=== PATIENT | male | born 1960 | race Caucasian/White ===

== ENCOUNTER 2019-06-23 10:55 | Inpatient (IN) | payer BC ==
[~2019-06-23] VITALS: Ht 193 cm; Wt 119.1 kg
[2019-06-23] VITALS (11 sets, daily range): BP systolic 144–168; BP diastolic 88–108
--- NOTE | 2019-06-23 11:13 | NUR ---
THIS IS A 59 YO M W/ C/O ABD PAIN N/V/D AND BLACK STOOLS SINCE THIS MORNING. REPORTS VOMITINGX5, BMX3. REPORTS COUGHING UP DIME SIZED BLOOD CLOTSX4 WEEKS, NOSEBLEEDS EVERYDAY AND SOB. PT C/O BLOATING AND ABD PAIN IN LWR QUADRANTS 08/03. PT DENIES CP. NO BLOOD THINNERS. PT IS RESTING ON [employer] W/ CALL LIGHT IN REACH. IN ROOM FOR EVAL.
[2019-06-23] MEDS ORDERED: SODIUM CHLORIDE FLUSH 10ML SYR IVF ONE (11:30)
[2019-06-23] MEDS ORDERED: PANTOPRAZOLE 80 MG in SODIUM CHLORIDE 0.9% 50 ML IVPB ONE (11:30)
[2019-06-23] MEDS ORDERED: ONDANSETRON 2MG/ML, 2ML IVPush ONE (11:30)
[2019-06-23] MEDS ORDERED: ONDANSETRON 2MG/ML, 2ML ONE (11:30)
[2019-06-23] MEDS ORDERED: SODIUM CHLORIDE 0.9% 1,000ML IVBOLUS ONE (11:30)
--- NOTE | 2019-06-23 11:59 | NUR ---
PT HAD EPISODE OF COFFEE GROUND EMESIS. ALSO COUGHED UP LARGE RED BLOOD CLOT. REPORTED TO .
[2019-06-23] MEDS ORDERED: PANTOPRAZOLE 80 MG in SODIUM CHLORIDE 0.9% 100 ML IV SCH (12:00)
[2019-06-23 12:07] LABS: ALANINE AMINOTRANSFERASE 68 U/L (12-78); ALBUMIN 4.1 g/dL (3.4-5.0); ANION GAP 12 mmol/L (5-15); CALCIUM 9.2 mg/dL (8.5-10.1); CHLORIDE 105 mmol/L (98-107); CREATININE 0.98 mg/dL (0.7-1.3)
[2019-06-23 12:09] LABS: ALKALINE PHOSPHATASE 141 U/L (45-117); BILIRUBIN,TOTAL 2.6 mg/dL (0.2-1.0); TOTAL PROTEIN 8.2 g/dL (6.4-8.2)
[2019-06-23 12:10] LABS: INTERNATIONAL NORMALIZED RATIO 1.25 (0.93-1.1); PROTHROMBIN TIME 13.3 Seconds (9.6-11.5)
[2019-06-23] MEDS ORDERED: LORazepam 2 MG/ML, 1ML ONE (12:19)
[2019-06-23] MEDS ORDERED: LORazepam 2 MG/ML, 1ML IVPush STA (12:28)
--- NOTE | 2019-06-23 12:29 | NUR ---
PT TO CT.
[2019-06-23 12:45] LABS: BASOPHILS # (AUTO) 0.01 x10^3/uL (0-0.1); BASOPHILS % (AUTO) 0 % (0-1); EOSINOPHILS % (AUTO) 0 % (1-7); LYMPHOCYTES # (AUTO) 0.46 x10^3/uL (1-3.4); LYMPHOCYTES % (AUTO) 10 % (22-44); MD SCAN; MEAN CORPUSCULAR HEMOGLOBIN 34.3 pg (27.5-34.5); MEAN CORPUSCULAR HGB CONC 34.2 g/dL (33.2-36.2); MEAN CORPUSCULAR VOLUME 100.6 fL (81-97); MEAN PLATELET VOLUME 8.9 fL (7.4-10.4); MONOCYTES # (AUTO) 0.38 x10^3/uL (0.2-0.8); MONOCYTES % (AUTO) 8 % (2-9); NEUTROPHILS # (AUTO) 3.86 x10^3/uL (1.8-6.8); NEUTROPHILS % (AUTO) 82 % (42-75); PLATELET COUNT 62 x10^3/uL (130-400); RED BLOOD COUNT 4.44 x10^6/uL (4.38-5.82); RED CELL DISTRIBUTION WIDTH 13.9 % (9.4-14.8)
[2019-06-23] MEDS ORDERED: OMNIPAQUE 350 MG/ML, 150 ML BOTTLE ONE (12:51)
--- NOTE | 2019-06-23 13:22 | NUR ---
URINAL PROVIDED TO PT.
--- NOTE | 2019-06-23 13:32 | NUR ---
URINE COLLECTED AND SENT TO LAB.
[2019-06-23 13:50] LABS: MICROSCOPIC NOT IND
[2019-06-23] MEDS ORDERED: CLON0.5T20 PO (13:51)
[2019-06-23] MEDS ORDERED: HUMIRA IM (13:51)
[2019-06-23] MEDS ORDERED: CEFTRIAXONE PMX 1GM/50ML 50 ML IV ONE (14:00)
[2019-06-23] MEDS ORDERED: AZITHROMYCIN 500 MG in SODIUM CHLORIDE 0.9% 250 ML IV ONE (14:00)
--- NOTE | 2019-06-23 14:00 | NUR ---
SPOKE W/ BLOOD BANK. WILL SEND PURPLE SLIP FOR PLATELETS AFTER PLASMA INFUSION IS COMPLETE.
[2019-06-23 14:01] LABS: CULTURE INDICATED? NO
--- NOTE | 2019-06-23 14:36 | NUR ---
PER HOLDING AZITHROMYCIN AND ROCEPHIN.
--- NOTE | 2019-06-23 14:55 | NUR ---
US IN ROOM.
[2019-06-23] MEDS ORDERED: CHLORDIAZEPOXIDE 25 MG CAPSULE PO PRN ×3 (15:00)
[2019-06-23] MEDS ORDERED: morphine SULFATE 10 MG/ML, 1ML IVPush PRN (15:00)
[2019-06-23] MEDS ORDERED: ACETAMINOPHEN 325 MG TABLET PO PRN (15:00)
[2019-06-23] MEDS ORDERED: CHLORDIAZEPOXIDE 10 MG CAPSULE PO PRN (15:00)
[2019-06-23 15:34] LABS: BILIRUBIN, DIRECT 0.8 mg/dL (0.1-0.2); C-REACTIVE PROTEIN, QUANT 0.28 mg/dL (0.02-0.49)
--- NOTE | 2019-06-23 15:34 | NUR ---
PHONE CALL FROM LAB ASKING IF PTT MIX STUDY IS A MISTAKE. TECH REPORTS THAT IT IS NOT A COMMON TEST AND THAT IT MAY BE COMPROMISED SINCE HE RECEIVED PLASMA. WILL NOTIFY
[2019-06-23 15:39] LABS: HCT (SEDRATE) 44.7 % (39.2-51.8)
--- NOTE | 2019-06-23 15:41 | NUR ---
PHONE CALL TO REGARDING PTT MIX STUDY TEST. WANTS TO KNOW IF LAB CAN RUN THE TEST ON BLOOD ALREADY DRAWN IF NOT IT WILL BE CANCELLED. WILL UPDATE LAB.
[2019-06-23 16:00] LABS: BILIRUBIN,INDIRECT 1.7 mg/dL (0.0-2.0); BILIRUBIN,TOTAL 2.5 mg/dL (0.2-1.0)
[2019-06-23] MEDS ORDERED: ONDANSETRON 2MG/ML, 2ML IVPush PRN (17:30)
[2019-06-23] MEDS: AMPICILLIN/SULBACTAM 3 GM in SODIUM CHLORIDE 0.9% 100 ML IV SCH ×2 (18:08→22:03)
[2019-06-23] MEDS: SODIUM CHLORIDE 0.9% 1,000 ML IV SCH (18:09)
[2019-06-23] MEDS ORDERED: LORazepam 0.5MG TABLET PO PRN (18:30)
[2019-06-23] MEDS ORDERED: LORazepam 2 MG/ML, 1ML IV PRN ×5 (18:30)
[2019-06-23] MEDS: OCTREOTIDE 500 MCG in SODIUM CHLORIDE 0.9% 99 ML IV SCH (20:36)
[2019-06-23] MEDS: PANTOPRAZOLE 80 MG in SODIUM CHLORIDE 0.9% 100 ML IV SCH (22:45)
[2019-06-24 00:15] VITALS: BP 151/110
[2019-06-24] MEDS: AMPICILLIN/SULBACTAM 3 GM in SODIUM CHLORIDE 0.9% 100 ML IV SCH ×4 (03:04→21:09)
[2019-06-24] MEDS: SODIUM CHLORIDE 0.9% 1,000 ML IV SCH ×3 (03:04→18:27)
[2019-06-24] MEDS: OCTREOTIDE 500 MCG in SODIUM CHLORIDE 0.9% 99 ML IV SCH (03:20)
[2019-06-24 05:25] LABS: MEAN CORPUSCULAR HEMOGLOBIN 34.5 pg (27.5-34.5); MEAN CORPUSCULAR HGB CONC 33.8 g/dL (33.2-36.2); MEAN CORPUSCULAR VOLUME 101.9 fL (81-97); MEAN PLATELET VOLUME 8.4 fL (7.4-10.4); PLATELET COUNT 64 x10^3/uL (130-400); RED BLOOD COUNT 3.49 x10^6/uL (4.38-5.82); RED CELL DISTRIBUTION WIDTH 13.8 % (9.4-14.8)
[2019-06-24 05:29] LABS: CHLORIDE 112 mmol/L (98-107)
[2019-06-24 05:46] LABS: ALANINE AMINOTRANSFERASE 46 U/L (12-78); ALBUMIN 3.3 g/dL (3.4-5.0); ALKALINE PHOSPHATASE 91 U/L (45-117); ANION GAP 5 mmol/L (5-15); BILIRUBIN,TOTAL 1.9 mg/dL (0.2-1.0); CALCIUM 8.6 mg/dL (8.5-10.1); CREATININE 0.96 mg/dL (0.7-1.3); TOTAL PROTEIN 6.5 g/dL (6.4-8.2)
[2019-06-24 05:51] LABS: BASOPHILS # (AUTO) 0.03 x10^3/uL (0-0.1); BASOPHILS % (AUTO) 1 % (0-1); EOSINOPHILS # (AUTO) 0.03 x10^3/uL (0-0.4); EOSINOPHILS % (AUTO) 1 % (1-7); LYMPHOCYTES # (AUTO) 0.75 x10^3/uL (1-3.4); LYMPHOCYTES % (AUTO) 22 % (22-44); MD SCAN; MONOCYTES # (AUTO) 0.44 x10^3/uL (0.2-0.8); MONOCYTES % (AUTO) 13 % (2-9); NEUTROPHILS # (AUTO) 2.24 x10^3/uL (1.8-6.8); NEUTROPHILS % (AUTO) 64 % (42-75)
[2019-06-24] MEDS ORDERED: PROPOFOL 10 MG/ML, 20ML ONE (07:36)
[2019-06-24] MEDS ORDERED: MIDAZOLAM 1 MG/ML, 2ML ONE (07:36)
[2019-06-24] MEDS ORDERED: LIDOCAINE-MPF 2% ,5ML ONE (07:36)
[2019-06-24 07:45] VITALS: BP 159/105
[2019-06-24] MEDS ORDERED: ONDANSETRON ODT 8 MG PO PRN (08:30)
[2019-06-24] MEDS ORDERED: DIAZEPAM 5 MG/ML, 2ML IVPush PRN (08:30)
[2019-06-24] MEDS ORDERED: OXYcodone 5 MG/5 ML ORAL.SOL UDC PO PRN (08:30)
[2019-06-24] MEDS ORDERED: ALBUTEROL SULFATE 2.5 MG/3 ML NPPB PRN (08:30)
[2019-06-24] MEDS ORDERED: MIDAZOLAM 1 MG/ML, 2ML IV PRN (08:30)
[2019-06-24] MEDS ORDERED: ONDANSETRON 2MG/ML, 2ML IV PRN (08:30)
[2019-06-24] MEDS ORDERED: FENTANYL PF 100 MCG/2ML IV PRN (08:30)
[2019-06-24] MEDS ORDERED: PROMETHAZINE 12.5 MG SUPP PR PRN (08:30)
[2019-06-24] MEDS ORDERED: LABETALOL 5MG/ML, 20ML IV PRN (08:30)
[2019-06-24] MEDS ORDERED: EPHEDRINE 50 MG/ML, 1ML IVPush PRN (08:30)
[2019-06-24] MEDS ORDERED: MEPERIDINE/PF 25MG/ML,1ML IVPush PRN (08:30)
[2019-06-24] MEDS ORDERED: HYDROmorphone 2 MG/ML, 1ML IVPush PRN (08:30)
[2019-06-24] MEDS ORDERED: HALOPERIDOL 5 MG/ML IV PRN (08:30)
[2019-06-24] MEDS ORDERED: PROMETHAZINE 25 MG/ML, 1ML IV PRN (08:30)
[2019-06-24] MEDS ORDERED: hydrALAzine 20 MG/ML, 1ML IV PRN (08:30)
[2019-06-24] MEDS: MULTIVITAMINS/MINERALS TABLET PO SCH (09:04)
[2019-06-24] MEDS: THIAMINE 100MG TABLET PO SCH (09:04)
[2019-06-24] MEDS: FOLIC ACID 1 MG TABLET PO SCH (09:04)
[2019-06-24] MEDS: PANTOPRAZOLE 80 MG in SODIUM CHLORIDE 0.9% 100 ML IV SCH ×2 (10:24→18:16)
[2019-06-24] MEDS: SUCRALFATE 1 GM/10 ML UDC PO SCH ×3 (11:22→21:08)
[2019-06-24 13:01] VITALS: BP 158/100
[2019-06-24 20:33] VITALS: BP 148/98
[2019-06-24] MEDS: AMLODIPINE 5 MG TABLET PO SCH (21:08)
[2019-06-25 01:24] VITALS: BP 128/78
[2019-06-25] MEDS: AMPICILLIN/SULBACTAM 3 GM in SODIUM CHLORIDE 0.9% 100 ML IV SCH ×4 (03:14→21:23)
[2019-06-25] MEDS: PANTOPRAZOLE 80 MG in SODIUM CHLORIDE 0.9% 100 ML IV SCH ×2 (04:11→14:33)
[2019-06-25] MEDS: SODIUM CHLORIDE 0.9% 1,000 ML IV SCH ×2 (04:59→14:04)
[2019-06-25 07:39] VITALS: BP 133/83
[2019-06-25 08:27] LABS: MEAN CORPUSCULAR HEMOGLOBIN 34.8 pg (27.5-34.5); MEAN CORPUSCULAR VOLUME 102.2 fL (81-97); MEAN PLATELET VOLUME 8.1 fL (7.4-10.4); PLATELET COUNT 57 x10^3/uL (130-400); RED BLOOD COUNT 3.27 x10^6/uL (4.38-5.82); RED CELL DISTRIBUTION WIDTH 13.3 % (9.4-14.8)
[2019-06-25 08:54] LABS: MD YES
[2019-06-25 09:00] LABS: BAND#(MANUAL) 0.07 x10^3/uL; BANDS%(MANUAL) 3 % (0-7); EOS% (MANUAL) 4 % (1-7); LYMPH#(MANUAL) 0.79 x10^3/uL (1-3.4); LYMPHS% (MANUAL) 33 % (22-44); MONOS#(MANUAL) 0.14 x10^3/uL (0.3-2.7); MONOS% (MANUAL) 6 % (2-9); REACTIVE LYMPHS # (MANUAL) 0.07 x10^3/uL (0-0); REACTIVE LYMPHS % (MANUAL) 3 % (0-0); SEG#(MANUAL) 1.22 x10^3/uL (1.8-6.8); SEGS% (MANUAL) 51 % (42-75)
[2019-06-25 09:01] LABS: <PLATELET ESTIMATE> DECREASED
[2019-06-25 09:03] LABS: <PLT MORPHOLOGY> NORMAL PLT MORPH
[2019-06-25] MEDS: FOLIC ACID 1 MG TABLET PO SCH (09:12)
[2019-06-25] MEDS: AMLODIPINE 5 MG TABLET PO SCH ×2 (09:12→21:22)
[2019-06-25] MEDS: MULTIVITAMINS/MINERALS TABLET PO SCH (09:12)
[2019-06-25] MEDS: SUCRALFATE 1 GM/10 ML UDC PO SCH ×4 (09:12→21:22)
[2019-06-25] MEDS: ONDANSETRON ODT 4 MG PO SCH ×3 (09:13→21:22)
[2019-06-25] MEDS: THIAMINE 100MG TABLET PO SCH (09:13)
[2019-06-25 12:04] VITALS: BP 136/89
[2019-06-25] MEDS: PANTOPROZOLE 40MG TABLET PO SCH (21:22)
[2019-06-25 21:32] VITALS: BP 143/87
[2019-06-26 00:48] VITALS: BP 150/94
[2019-06-26] MEDS: AMPICILLIN/SULBACTAM 3 GM in SODIUM CHLORIDE 0.9% 100 ML IV SCH ×2 (02:45→10:07)
[2019-06-26] MEDS: ONDANSETRON ODT 4 MG PO SCH ×2 (03:00→07:32)
[2019-06-26 05:45] LABS: MEAN CORPUSCULAR HEMOGLOBIN 34.8 pg (27.5-34.5); MEAN CORPUSCULAR HGB CONC 34.5 g/dL (33.2-36.2); MEAN CORPUSCULAR VOLUME 100.8 fL (81-97); MEAN PLATELET VOLUME 8.6 fL (7.4-10.4); PLATELET COUNT 54 x10^3/uL (130-400); RED BLOOD COUNT 3.14 x10^6/uL (4.38-5.82); RED CELL DISTRIBUTION WIDTH 13.2 % (9.4-14.8)
[2019-06-26 06:25] LABS: BASOPHILS # (AUTO) 0.03 x10^3/uL (0-0.1); BASOPHILS % (AUTO) 1 % (0-1); EOSINOPHILS # (AUTO) 0.11 x10^3/uL (0-0.4); EOSINOPHILS % (AUTO) 4 % (1-7); LYMPHOCYTES # (AUTO) 0.89 x10^3/uL (1-3.4); LYMPHOCYTES % (AUTO) 30 % (22-44); MD SCAN; MONOCYTES # (AUTO) 0.36 x10^3/uL (0.2-0.8); MONOCYTES % (AUTO) 12 % (2-9); NEUTROPHILS # (AUTO) 1.56 x10^3/uL (1.8-6.8); NEUTROPHILS % (AUTO) 53 % (42-75)
[2019-06-26] MEDS: SUCRALFATE 1 GM/10 ML UDC PO SCH ×2 (07:00→11:00)
[2019-06-26] MEDS: FOLIC ACID 1 MG TABLET PO SCH (07:31)
[2019-06-26] MEDS: MULTIVITAMINS/MINERALS TABLET PO SCH (07:31)
[2019-06-26] MEDS: AMLODIPINE 5 MG TABLET PO SCH (07:31)
[2019-06-26] MEDS: THIAMINE 100MG TABLET PO SCH (07:32)
[2019-06-26] MEDS: PANTOPROZOLE 40MG TABLET PO SCH (07:32)
[2019-06-26 07:47] VITALS: BP 138/84
[2019-06-26] MEDS ORDERED: NALOXONE 1 MG/ML, 2ML ONE (08:07)
[2019-06-26] MEDS ORDERED: FENTANYL PF 100 MCG/2ML ONE (08:07)
[2019-06-26] MEDS ORDERED: FLUMAZENIL 0.1 MG/1 ML, 5ML ONE (08:07)
[2019-06-26] MEDS ORDERED: MIDAZOLAM 1 MG/ML, 5ML ONE (08:07)
[2019-06-26] MEDS ORDERED: AMOX1TAB64 PO (12:01)
[2019-06-26] MEDS ORDERED: ONDA4TAB13 PO (12:01)
[2019-06-26] MEDS ORDERED: AMLO-150 PO (12:01)
[2019-06-26] MEDS ORDERED: PANT40TA5 PO (12:01)
[2019-06-26] MEDS ORDERED: SUCR1ORA5 PO (12:01)
[2019-06-26 12:18] VITALS: BP 125/74
[2019-06-26] MEDS ORDERED: SODIUM CHLORIDE 0.9% 1,000 ML IV SCH (14:37)
[2019-06-26] MEDS ORDERED: DIAZ5TAB PO (15:10)
== END 2019-06-26 15:26 | disposition home or self-care (01) | DRG 177 ==
LOC: ED 13:36 → EDIP 14:06 → 3N 15:30 → DCLOUNGE 06-26 15:06
PROVIDERS: ADMIT Internal Medicine Infectious Disease; ATTEND Hospitalist
PROC: 30233K1 Transfusion of Nonautologous Frozen Plasma into Peripheral Vein, Percutaneous Approach (ICD-10-PCS; 2019-06-23)
PROC: 30233R1 Transfusion of Nonautologous Platelets into Peripheral Vein, Percutaneous Approach (ICD-10-PCS; 2019-06-23)
PROC: 0DB68ZX Excision of Stomach, Via Natural or Artificial Opening Endoscopic, Diagnostic (ICD-10-PCS; 2019-06-24)
PROC: 0W3P8ZZ Control Bleeding in Gastrointestinal Tract, Via Natural or Artificial Opening Endoscopic (ICD-10-PCS; principal; 2019-06-24 07:30)
PROC: 07DR3ZX Extraction of Iliac Bone Marrow, Percutaneous Approach, Diagnostic (ICD-10-PCS; 2019-06-26)
DX: J69.0 Pneumonitis due to inhalation of food and vomit (principal); K26.4 Chronic or unspecified duodenal ulcer with hemorrhage; K22.6 Gastro-esophageal laceration-hemorrhage syndrome; D61.818 Other pancytopenia; D68.9 Coagulation defect, unspecified; F10.288 Alcohol dependence with other alcohol-induced disorder; F41.0 Panic disorder [episodic paroxysmal anxiety]; I10 Essential (primary) hypertension; K29.60 Other gastritis without bleeding; K70.10 Alcoholic hepatitis without ascites; K76.0 Fatty (change of) liver, not elsewhere classified; L40.50 Arthropathic psoriasis, unspecified; R04.0 Epistaxis; Z80.1 Family history of malignant neoplasm of trachea, bronchus and lung; Z82.0 Family history of epilepsy and other diseases of the nervous system; Z87.19 Personal history of other diseases of the digestive system; Z87.891 Personal history of nicotine dependence; K52.9 Noninfective gastroenteritis and colitis, unspecified
CPT/HCPCS: 36415; 84145; 86147; 96361; 96374; 99285; J3490; 38222; 71275; 74177; 76700; 77012; 80053; 81003; 82247; 82248; 82607; 83690; 85018; 85025; 85060; 85097; 85384; 85610; 85651; 85730; 86140; 86704; 86706; 86708; 86803; 86850; 86880; 86900; 87040; 87340; 88237; 88264; 88280; 88305; 88311; 88313; 88342; 99156; 99157; G0378; J0295; J2250; J2354; J2405; J2704; J3010; Q0162; Q9967; C9113; J2060; J2310; J7030; P9017; P9035

== ENCOUNTER 2019-12-23 12:02 | Inpatient (IN) | payer BC ==
[~2019-12-23] VITALS: Ht 193 cm; Wt 116.4 kg
[~2019-12-23 12:02] MED LIST: AMLO-150 PO; AMOX1TAB64 PO; CLON0.5T20 PO; DIAZ5TAB PO; HUMIRA IM; ONDA4TAB13 PO; PANT40TA5 PO; SUCR1ORA5 PO
[2019-12-23] MEDS ORDERED: PANTOPRAZOLE 40 MG IV ONE (12:58)
[2019-12-23] MEDS ORDERED: MORPHINE SULFATE 4 MG/ML, 1ML ONE (12:58)
[2019-12-23] MEDS ORDERED: ONDANSETRON 2MG/ML, 2ML ONE (12:58)
[2019-12-23] MEDS ORDERED: FAMOTIDINE 20 MG/2 ML ONE (12:58)
[2019-12-23] MEDS ORDERED: MAALOX/HYOSCYAMINE/LIDOCAINE 45 ML BTL ONE (12:58)
[2019-12-23] MEDS ORDERED: SODIUM CHLORIDE FLUSH 10ML SYR IVF ONE (13:00)
[2019-12-23] MEDS ORDERED: FAMOTIDINE 20 MG/2 ML IVPush ONE (13:00)
[2019-12-23] MEDS ORDERED: PANTOPRAZOLE 40 MG IV IVPush ONE (13:00)
[2019-12-23] MEDS ORDERED: MAALOX/HYOSCYAMINE/LIDOCAINE 45 ML BTL PO ONE (13:00)
[2019-12-23] MEDS ORDERED: ONDANSETRON 2MG/ML, 2ML IVPush ONE (13:00)
[2019-12-23] MEDS ORDERED: SODIUM CHLORIDE 0.9% 1,000ML IVBOLUS ONE (13:00)
[2019-12-23] MEDS ORDERED: MORPHINE SULFATE 4 MG/ML, 1ML IVPush PRN (13:00)
[2019-12-23 13:30] LABS: INTERNATIONAL NORMALIZED RATIO 1.32 (0.93-1.1); PROTHROMBIN TIME 13.6 Seconds (9.6-11.5)
[2019-12-23 13:35] LABS: ALANINE AMINOTRANSFERASE 91 U/L (12-78); ALBUMIN 4.2 g/dL (3.4-5.0); ANION GAP 11 mmol/L (5-15); CHLORIDE 99 mmol/L (98-107)
[2019-12-23 13:38] LABS: ALKALINE PHOSPHATASE 162 U/L (45-117); BILIRUBIN,TOTAL 4.7 mg/dL (0.2-1.0); CREATININE 0.98 mg/dL (0.7-1.3); TOTAL PROTEIN 8.3 g/dL (6.4-8.2)
[2019-12-23 13:43] LABS: MEAN CORPUSCULAR HEMOGLOBIN 33.1 pg (27.5-34.5); MEAN CORPUSCULAR HGB CONC 33.7 g/dL (33.2-36.2); MEAN CORPUSCULAR VOLUME 98.2 fL (81-97); MEAN PLATELET VOLUME 8.5 fL (7.4-10.4); RED BLOOD COUNT 4.89 x10^6/uL (4.38-5.82); RED CELL DISTRIBUTION WIDTH 14.6 % (9.4-14.8)
[2019-12-23 13:45] LABS: BASOPHILS % (AUTO) 0 % (0-1); EOSINOPHILS % (AUTO) 0 % (1-7); LYMPHOCYTES # (AUTO) 0.32 x10^3/uL (1-3.4); LYMPHOCYTES % (AUTO) 11 % (22-44); MD SCAN; MONOCYTES % (AUTO) 14 % (2-9); NEUTROPHILS # (AUTO) 2.19 x10^3/uL (1.8-6.8); NEUTROPHILS % (AUTO) 75 % (42-75)
[2019-12-23 13:47] LABS: PLATELET COUNT 31 x10^3/uL (130-400)
--- NOTE | 2019-12-23 14:03 | NUR ---
PT CAME TO THE ER FOR ABD PAIN, UNABLE TO EAT OR DRINK FOR THREE DAYS. INTERMIT SAME OVER THE PAST SEVERAL MONTH. COUGHING BLOOD, HX BLEEDING ULCERS, LIVER DISEASE, NASAL SURG TO BE DONE ON Dec. PT IN BED IN GOWN WITH CONT SPO2, BPQ 30 MIN, SIDE RAILS UP X2, CALL LIGHT IN REACH.
[2019-12-23] MEDS ORDERED: LORazepam 2 MG/ML, 1ML IVPush PRN (16:00)
[2019-12-23] MEDS ORDERED: ONDANSETRON 2MG/ML, 2ML IVPush PRN (16:00)
[2019-12-23] MEDS ORDERED: ACETAMINOPHEN 325 MG TABLET PO PRN (16:00)
[2019-12-23] MEDS ORDERED: hydrALAzine 20 MG/ML, 1ML IVPush PRN (16:00)
--- NOTE | 2019-12-23 16:27 | NUR ---
PT CALM IN BED, MD FRAGOSO AT BEDSIDE. WENT OVER PLAN OF CARE. PT AGREES TO ADMIT.
--- NOTE | 2019-12-23 17:35 | NUR ---
PHARM REQUEST SENT, EDU PT ON NPO
--- NOTE | 2019-12-23 17:44 | NUR ---
PT ON HOSPITAL BED FOR COMFORT
[2019-12-23] MEDS: POTASSIUM CHLORIDE 20 MEQ, MAGNESIUM SULFATE 2 GM, THIAMINE 200 MG, MVI ADULT 10 ML, FO... IV SCH ×2 (18:09→23:02)
--- NOTE | 2019-12-23 18:50 | NUR ---
REPORT FROM JORGE RN ASSUMING CARE OF PT AT THIS TIME
--- NOTE | 2019-12-23 19:48 | NUR ---
PT RESTING ON HOSPITAL BED NADN.
--- NOTE | 2019-12-23 20:04 | NUR ---
VITALS UPDATED, PT RESTING ON HOSPITAL BED NO NEEDS AT THIS TIME, FLUIDS CONTINUE TO INFUSE WITHOUT DIFFICULTY
[2019-12-23] MEDS: SUCRALFATE 1 GM/10 ML UDC PO SCH ×2 (20:41→21:00)
--- NOTE | 2019-12-23 20:41 | NUR ---
MEDS FROM PHARM, PT MEDICATED PER АЛЕКСАНДР HAYDEN. TOLERATED WELL 5 RIGHTS VERIFIED
--- NOTE | 2019-12-23 20:46 | NUR ---
SPOKE WITH DAYAN FROM PHARMACY, HOLD NEXT DOSE OF CARAFATE (DUE AT 2100) GIVE AGAIN A 0700.
--- NOTE | 2019-12-23 21:15 | NUR ---
REPORT TO TAQUERIA LOMELI PT READY FOR TRANSPORT TO ROOM 504
[2019-12-23 21:45] VITALS: BP 163/96
[2019-12-23] MEDS: PANTOPRAZOLE 40 MG IV IVPush SCH (22:21)
[2019-12-24 01:06] VITALS: BP 145/88
[2019-12-24 05:22] LABS: ANION GAP 6 mmol/L (5-15); CALCIUM 8.5 mg/dL (8.5-10.1); CHLORIDE 103 mmol/L (98-107)
[2019-12-24 05:24] LABS: CREATININE 0.87 mg/dL (0.7-1.3)
[2019-12-24 05:48] LABS: MEAN CORPUSCULAR HEMOGLOBIN 33.4 pg (27.5-34.5); MEAN CORPUSCULAR HGB CONC 34.4 g/dL (33.2-36.2); MEAN CORPUSCULAR VOLUME 97.3 fL (81-97); RED BLOOD COUNT 4.31 x10^6/uL (4.38-5.82); RED CELL DISTRIBUTION WIDTH 14.8 % (9.4-14.8)
[2019-12-24 05:53] LABS: PLATELET COUNT 24 x10^3/uL (130-400)
[2019-12-24 05:58] LABS: BASOPHILS # (AUTO) 0.03 x10^3/uL (0-0.1); BASOPHILS % (AUTO) 1 % (0-1); EOSINOPHILS # (AUTO) 0.03 x10^3/uL (0-0.4); EOSINOPHILS % (AUTO) 1 % (1-7); LYMPHOCYTES # (AUTO) 0.64 x10^3/uL (1-3.4); LYMPHOCYTES % (AUTO) 25 % (22-44); MD SCAN; MONOCYTES % (AUTO) 19 % (2-9); NEUTROPHILS # (AUTO) 1.42 x10^3/uL (1.8-6.8); NEUTROPHILS % (AUTO) 55 % (42-75)
[2019-12-24 06:23] VITALS: BP 137/84
[2019-12-24 06:59] VITALS: BP 136/82
[2019-12-24] MEDS ORDERED: POTASSIUM PHOSPHATE 44 MEQ in SODIUM CHLORIDE 0.9% 500 ML IV ONE (07:30)
[2019-12-24] MEDS: PANTOPRAZOLE 40 MG IV IVPush SCH (09:13)
[2019-12-24] MEDS: SUCRALFATE 1 GM/10 ML UDC PO SCH ×3 (09:13→16:33)
[2019-12-24 12:48] VITALS: BP 133/85
[2019-12-24] MEDS ORDERED: PANT40TA5 PO (14:32)
[2019-12-24] MEDS ORDERED: SUCR1TAB PO (14:32)
[2019-12-24] MEDS ORDERED: POTASSIUM CHLORIDE 20 MEQ, MAGNESIUM SULFATE 2 GM, THIAMINE 200 MG, MVI ADULT 10 ML, FO... IV SCH (18:00)
== END 2019-12-24 17:00 | disposition home or self-care (01) | DRG 392 ==
LOC: ED 13:28 → EDIP 14:12 → 5SO 21:35
PROVIDERS: ADMIT Internal Medicine; ATTEND Hospitalist
DX: K29.20 Alcoholic gastritis without bleeding (principal); D69.3 Immune thrombocytopenic purpura; D72.819 Decreased white blood cell count, unspecified; K70.10 Alcoholic hepatitis without ascites; K70.30 Alcoholic cirrhosis of liver without ascites; K29.00 Acute gastritis without bleeding; Z87.891 Personal history of nicotine dependence; Z87.19 Personal history of other diseases of the digestive system; F10.21 Alcohol dependence, in remission
CPT/HCPCS: 36415; 87338; J3490; J7042; 76700; 80048; 80053; 80307; 83605; 83690; 83735; 84100; 85025; 85610; 85730; G0378; J2405; J3411; J3475; J3480; C9113; J7030; J7040

== ENCOUNTER 2020-02-10 14:30 | Emergency (ER) | payer BC ==
[~2020-02-10] VITALS: Ht 190.5 cm; Wt 105.0 kg
[~2020-02-10 14:30] MED LIST changes: -PANT40TA5 PO; +PANT40TA6 PO; +SUCR1TAB PO
[2020-02-10] MEDS ORDERED: SODIUM CHLORIDE FLUSH 10ML SYR IVF ONE (15:00)
[2020-02-10 15:19] LABS: ALANINE AMINOTRANSFERASE 57 U/L (12-78); ALBUMIN 4.1 g/dL (3.4-5.0); ANION GAP 7 mmol/L (5-15); BASOPHILS % (AUTO) 1 % (0-1); CALCIUM 10.1 mg/dL (8.5-10.1); CHLORIDE 107 mmol/L (98-107); CREATININE 0.88 mg/dL (0.7-1.3); EOSINOPHILS % (AUTO) 0 % (1-7); LYMPHOCYTES % (AUTO) 16 % (22-44); MEAN CORPUSCULAR HEMOGLOBIN 32.2 pg (27.5-34.5); MEAN CORPUSCULAR HGB CONC 33.6 g/dL (33.2-36.2); MEAN PLATELET VOLUME 9.1 fL (7.4-10.4); MONOCYTES % (AUTO) 10 % (2-9); NEUTROPHILS % (AUTO) 74 % (42-75); PLATELET COUNT 50 x10^3/uL (130-400); RED BLOOD COUNT 4.63 x10^6/uL (4.38-5.82); RED CELL DISTRIBUTION WIDTH 13.8 % (9.4-14.8)
[2020-02-10 15:21] LABS: ALKALINE PHOSPHATASE 142 U/L (45-117); BILIRUBIN,TOTAL 2.5 mg/dL (0.2-1.0); TOTAL PROTEIN 7.9 g/dL (6.4-8.2)
[2020-02-10 15:30] LABS: INTERNATIONAL NORMALIZED RATIO 1.32 (0.93-1.1)
[2020-02-10 15:48] LABS: MD SCAN
--- NOTE | 2020-02-10 16:32 | NUR ---
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
--- NOTE | 2020-02-10 16:34 | NUR ---
C/O N/V AND LOWER ABD PAIN SINCE 6AM THIS MORNING. PLACED ON VITALS MONITORS, CALL LIGHT PLACED WITHIN REACH.
[2020-02-10] MEDS ORDERED: ONDANSETRON 2MG/ML, 2ML IVPush ONE (17:30)
[2020-02-10] MEDS ORDERED: SODIUM CHLORIDE 0.9% 1,000ML IVBOLUS ONE (17:30)
--- NOTE | 2020-02-10 17:30 | NUR ---
PT TRANSPORTED TO CT.
[2020-02-10] MEDS ORDERED: OMNIPAQUE 350 MG/ML, 100ML BOTTLE ONE (17:46)
[2020-02-10] MEDS ORDERED: ONDANSETRON 2MG/ML, 2ML ONE (17:52)
[2020-02-10] MEDS ORDERED: MAALOX/HYOSCYAMINE/LIDOCAINE 45 ML BTL PO ONE (18:30)
[2020-02-10] MEDS ORDERED: MAALOX/HYOSCYAMINE/LIDOCAINE 45 ML BTL ONE (19:00)
[2020-02-10 19:27] LABS: MICROSCOPIC AUTO
[2020-02-10 19:39] VITALS: BP 132/85
== END 2020-02-10 19:51 | disposition home or self-care (01) ==
LOC: ED 15:34
DX: R11.2 Nausea with vomiting, unspecified (principal); R10.84 Generalized abdominal pain; I10 Essential (primary) hypertension; E78.5 Hyperlipidemia, unspecified; F17.200 Nicotine dependence, unspecified, uncomplicated
CPT/HCPCS: 36415; 74177; 80053; 81001; 83690; 85025; 85610; 96361; 96374; 99285; J2405; J7030; Q9967